=== PATIENT | female | born 1980 | race Caucasian/White ===

== ENCOUNTER 2020-07-26 08:02 | Outpatient (REF) | payer BC, SELFPAY | END 2020-07-26 08:03 | disposition home or self-care (01) | LOC: HO.LAB 08:02 | PROVIDERS: Visit Provider Internal Medicine | DX: Z20.822 Contact with and (suspected) exposure to COVID-19 (principal) | CPT/HCPCS: C9803; U0003; U0005 ==

== ENCOUNTER 2020-11-11 17:00 | Emergency (ER) | payer BC, SELFPAY ==
[2020-11-11 18:10] VITALS: BP 123/70; PULSE 72; RESP 18; TEMP 36.8; O2SAT 98; BMI 21.4
[2020-11-11 19:40] LABS: MANUAL DIFF FLAG NO
[2020-11-11 19:42] LABS: Basophils Percent Auto 0.4 % (0-2); Eosinophils Absolute Auto 0.1 X10*3/uL (0.0-0.4); Eosinophils Percent Auto 0.5 % (0-4); Hematocrit 37.4 % (37-47); Hemoglobin 12.8 g/dl (12.0-16.0); Imm Gran Abs Auto 0.02 X10*3/uL (0.00-0.03); Imm Gran Pct Auto 0.2 % (0.0-0.4); Lymphocytes Absolute Auto 3.3 X10*3/uL (1.2-4.9); Lymphocytes Percent Auto 31.4 % (20-40); Mean Corpuscular HGB Conc 34.2 g/dl (31.0-35.0); Mean Corpuscular Hemoglobin 32.3 pg (27.0-33.0); Mean Corpuscular Volume 94.4 fL (80-98); Mean Platelet Volume 9.5 fL (9.4-12.3); Monocytes Absolute Auto 0.6 X10*3/uL (0.1-1.2); Monocytes Percent Auto 5.7 % (2-11); Neutrophils Absolute Auto 6.4 X10*3/uL (2.0-8.3); Neutrophils Percent Auto 61.8 % (45-73); Platelet Count 263 X10*3/uL (160-400); Red Blood Count 3.96 X10*6/uL (4.20-5.50); Red Cell Distribution Width 12.5 % (11.0-16.0); White Blood Count 10.3 X10*3/uL (4.8-10.8)
[2020-11-11 19:44] LABS: Glucose Urine UA NEG (NEG); Leukocyte Esterase Urine NEG (NEG); Nitrite Urine NEG (NEG); Specific Gravity - Urine <= 1.005 (1.005-1.025); Urine Blood NEG (NEG); Urine Ketones NEG (NEG); Urine Protein NEG (NEG-TRACE)
[2020-11-11 19:45] LABS: Appearance Urine CLEAR; Color Urine YELLOW
[2020-11-11 20:08] LABS: Alanine Aminotransferase 12 U/L (0-31); Albumin Level 4.4 g/dL (3.5-5.0); Alkaline Phosphatase 64 U/L (39-117); Anion Gap 13 (12-20); Aspartate Amino Transferase 12 U/L (5-31); Bilirubin Total 0.4 mg/dL (0.0-1.0); Blood Urea Nitrogen 10 mg/dL (9-16); Calcium 9.4 mg/dL (8.4-10.2); Carbon Dioxide 26 mmol/L (22-29); Chloride 104 mmol/L (96-108); Creatinine Clr Calc Pharmacy 90.5; Estimated Glomerular Filt Rate > 60; Glucose Random 100 mg/dL (60-115); Potassium 4.1 mmol/L (3.3-5.1); Sodium 139 mmol/L (135-145); Total Protein 7.2 g/dL (6.5-8.0)
[2020-11-11 20:31] VITALS: BP 131/86; PULSE 70; RESP 18; TEMP 36.7; O2SAT 100
--- NOTE | 2020-11-11 20:49 | ED_ITS ---
HPI - Back Pain/Injury General Chief Complaint: Abdominal Pain Stated Complaint: flank pain Time Seen by Provider: 11/11/20 20:31 Source: patient Mode of arrival: ambulatory Limitations: no limitations History of Present Illness HPI Narrative: Patient is status post MTP 6 weeks ago complaining nausea bilateral flank pain for last few days had some frequency seen her PCP yesterday and did the urine testing and started on Bactrim pending final result no history of kidney stones no dysuria has lot of anxiety was treated for bacterial vaginosis 1 week ago no vaginal discharge now no fever or chills no nausea no v omiting no shortness of breath no cough Related Data Previous Rx's Medication Instructions Recorded cyclobenzaprine 10 mg tablet 10 mg PO Q8H #20 tab 11/11/20 lorazepam 1 mg tablet (Ativan) 1 mg PO BEDTIME PRN #10 tab 11/11/20 tramadol 50 mg tablet 50 mg PO Q6H PRN #20 tab 11/11/20 Allergies Allergy/AdvReac Type Severity Reaction Status Date / Time No Known Allergies Allergy Verified 11/11/20 18:10 [No Known Allergies*] Review of Systems Review of Systems: Yes all other systems are reviewed and are negative [facility] Past Medical History Medical History Social History Social History Advance Directives: No Patient : No Physical Exam Vital Signs: Vital Signs: Last Vital Signs Temp 98.0 F 11/11/20 20:31 Pulse 70 11/11/20 20:31 Resp 18 11/11/20 20:31 BP 131/86 11/11/20 20:31 Pulse Ox 100 11/11/20 20:31 Body Mass Index 21.4 Appearance: Alert. Oriented X3. No acute distress. Anxious Eyes: PERRLA, conjunctiva was normal sclera normal ENT: Pharynx normal. Oral Mucosa moist Neck: Normal inspection. Neck supple. CVS: Normal heart rate and rhythm. Pulses normal. Respiratory: No respiratory distress. Equal air entry bilateral, no wheezing/rales/rhonchi Abdomen: Soft and nontender. Bowel sounds are present, no mass palpable, mild right CVA tenderness Skin: Skin warm and dry. Normal skin color. Normal skin turgor. Extremities: No lower extremity edema. No calf tenderness Neuro: Oriented X 3. MDM - Back Pain/Injury MDM Narrative Medical decision making narrative: Patient with labs workup normal urine negative for red cells or white cells patient seems to more anxious likely muscular back pain will discharge her on pain medication was relaxed Lab Data Attestation: I reviewed the patient's lab results. Result diagrams: 11/11/20 19:33 11/11/20 19:33 Labs: Lab Results 11/11/20 11/11/20 11/11/20 Range/Units 19:26 19:33 19:33 WBC 10.3 (4.8-10.8) X10*3/uL RBC 3.96 L (4.20-5.50) X10*6/uL Hgb 12.8 (12.0-16.0) g/dl Hct 37.4 (37-47) % MCV 94.4 (80-98) fL MCH 32.3 (27.0-33.0) pg MCHC 34.2 (31.0-35.0) g/dl RDW 12.5 (11.0-16.0) % Plt Count 263 (160-400) X10*3/uL MPV 9.5 (9.4-12.3) fL Immature Gran % (Auto) 0.2 (0.0-0.4) % Neut % (Auto) 61.8 (45-73) % Lymph % (Auto) 31.4 (20-40) % Howell % (Auto) 5.7 (2-11) % Eos % (Auto) 0.5 (0-4) % Baso % (Auto) 0.4 (0-2) % Lymph # (Auto) 3.3 (1.2-4.9) X10*3/uL Howell # (Auto) 0.6 (0.1-1.2) X10*3/uL Eos # (Auto) 0.1 (0.0-0.4) X10*3/uL Baso # (Auto) 0.0 (0.0-0.2) X10*3/uL Abs Immat Gran (auto) 0.02 (0.00-0.03) X10*3/uL Absolute Neuts (auto) 6.4 (2.0-8.3) X10*3/uL Absolute Nucleated RBC 0.000 (0.0-0.012) X10*3/uL Nucleated RBC % (auto) 0.0 (0.0-0.2) /100WBC Sodium 139 (135-145) mmol/L Potassium 4.1 (3.3-5.1) mmol/L Chloride 104 (96-108) mmol/L Carbon Dioxide 26 (22-29) mmol/L Anion Gap 13 (12-20) BUN 10 (9-16) mg/dL Creatinine 0.84 (0.5-1.4) mg/dL Estim Creat Clear Calc 90.5 Estimated GFR > 60 Random Glucose 100 (60-115) mg/dL Calcium 9.4 (8.4-10.2) mg/dL Total Bilirubin 0.4 (0.0-1.0) mg/dL AST 12 (5-31) U/L ALT 12 (0-31) U/L Alkaline Phosphatase 64 (39-117) U/L Total Protein 7.2 (6.5-8.0) g/dL Albumin 4.4 (3.5-5.0) g/dL Urine Color YELLOW Urine Appearance CLEAR Urine pH 6.0 (5.0-8.0) Ur Specific [place] <= 1.005 (1.005-1.025) Urine Protein NEG (NEG-TRACE) MG/DL Urine Glucose (UA) NEG (NEG) MG/DL Urine Ketones NEG (NEG) MG/DL Urine Blood NEG (NEG) Urine Nitrite NEG (NEG) Ur Leukocyte Esterase NEG (NEG) Discharge Plan Discharge Clinical Impression: Back ache Patient Disposition: Home, Self-Care Instructions: Back Pain (ED) Additional Instructions: your blood workup and urine is negative for any infection Take pain medication and muscle relaxant as advised Prescriptions: New cyclobenzaprine 10 mg tablet 10 mg PO Q8H Qty: 20 RF: 0 tramadol 50 mg tablet 50 mg PO Q6H PRN (Reason: pain) Qty: 20 RF: 0 lorazepam [Ativan] 1 mg tablet 1 mg PO BEDTIME PRN (Reason: anxiety) Qty: 10 RF: 0 Interventions: ED Discharge Assessment Last Done: 11/11/20 20:57 Discharge Date/Time: 11/11/20 20:58
== END 2020-11-11 20:58 | disposition home or self-care (01) ==
LOC: HO.ED 20:53
PROVIDERS: Emergency Provider Internal Medicine; PCP Internal Medicine
DX: M54.9 Dorsalgia, unspecified (principal)
CPT/HCPCS: 36415; 80053; 81003; 85025; 99283

== ENCOUNTER 2022-02-25 08:08 | Outpatient (REF) | payer OTHER, SELFPAY ==
[2022-02-25 11:11] LABS: MANUAL DIFF FLAG NO
[2022-02-25 11:32] LABS: Basophils Percent Auto 0.5 % (0-2); Eosinophils Percent Auto 0.7 % (0-4); Hematocrit 38.5 % (37.0-47.0); Imm Gran Abs Auto 0.02 X10*3/uL (0.00-0.03); Imm Gran Pct Auto 0.3 % (0.0-0.4); Lymphocytes Absolute Auto 2.2 X10*3/uL (1.2-4.9); Lymphocytes Percent Auto 36.7 % (20-40); Mean Corpuscular HGB Conc 33.8 g/dl (31.0-35.0); Mean Corpuscular Hemoglobin 31.3 pg (27.0-33.0); Mean Corpuscular Volume 92.5 fL (80.0-98.0); Mean Platelet Volume 10.1 fL (9.4-12.3); Monocytes Absolute Auto 0.4 X10*3/uL (0.1-1.2); Monocytes Percent Auto 7.2 % (2-11); Neutrophils Absolute Auto 3.2 x10*3/uL (2.0-8.3); Neutrophils Percent Auto 54.6 % (45-73); Platelet Count 244 X10*3/uL (160-400); Red Blood Count 4.16 X10*6/uL (4.20-5.50); Red Cell Distribution Width 12.9 % (11.0-16.0); White Blood Count 5.9 X10*3/uL (4.8-10.8)
[2022-02-25 12:28] LABS: Cholesterol 190 mg/dL; Glucose Fasting 95 mg/dL (60-99); HDL Cholesterol 73 mg/dL; LDL Cholesterol Calculated 108 mg/dl; Triglycerides 47 mg/dL; Vitamin D 25-OH Total 34.9 ng/mL (>30)
== END 2022-02-25 08:09 | disposition home or self-care (01) ==
LOC: HO.HMGCLDS 08:08
PROVIDERS: PCP Internal Medicine; Visit Provider Internal Medicine
DX: Z00.00 Encounter for general adult medical examination without abnormal findings (principal)
CPT/HCPCS: 36415; 80061; 82306; 82947; 85025

== ENCOUNTER 2023-03-03 07:46 | Outpatient (AMB) | payer OTHER, SELFPAY ==
--- NOTE | 2023-03-03 08:00 | A.OFFPC_ITS ---
Vital Signs 03/03/23 08:01 Height 5 ft 9 in Weight 160 lb 6 oz BMI 23.7 BP 120/78 Blood Pressure Location Lt brachial Position Sitting Pulse 61 Pulse Source Pulse Oximeter Pulse Oximetry (%) 98 Oxygen Delivery Method Room Air Intake Visit Reasons: Annaul PE Intake Note: pt is here for her Annual PE Is last menstrual period known: Yes Last menstrual period: 02/10/23 Allergies amoxicillin Adverse Reaction (Intermediate, Verified 03/03/23 08:16) Vomiting Medication List - Last Reconciled 03/03/23 by Mayuri Pineda MD No Known Home Meds Tobacco use date assessed: 03/03/23 Dental Screening Dental Screen Date: 03/03/23 Did you have a dental visit in the last 12 months?: Yes Did you have a dental problem in the last 6 months where you did not have access to dental care?: No Was dental information given to patient?: Patient has dentist HPI Annaul PE HPI Details 42-year-old lady here today for physical exam. She is up-to-date with her screening mammogram, had it done earlier this year at [facility] with negative findings. Has been feeling well, with no complaints at present time. Vaccines have been offered in the past but patient has declined getting them. She sees Dr. Gupta for her routine Pap and pelvic exam, last Pap was done in 2020. [facility] Medical History (Updated 03/03/23 @ 08:18 by Mayuri Pineda MD) Refused influenza vaccine COVID-19 vaccine series declined Varicose veins of left lower extremity Surgical History Status post sclerotherapy of varicose veins Family History Father Essential hypertension History of CVA (cerebrovascular accident) Hyperlipidemia Prostate cancer Mother Hyperlipidemia Essential hypertension Melanoma Housing: House Patient Tobacco Use Status: Never used Tobacco e-Cigarette/Vaping Use: Never Used Second Hand Smoke Exposure: No Current occupational status: employed Cognitive needs: No Hearing needs: No Vision needs: No Female Reproductive History Menstrual Date of last menstrual period: 02/10/23 Questionnaire PHQ-9 Over the last 2 weeks, how often have you been bothered by any of the following problems? 1. Little interest or pleasure in doing things: not at all 2. Feeling down, depressed, or hopeless: not at all 3. Trouble falling or staying asleep, or sleeping too much: not at all 4. Feeling tired or having little energy: several days 5. Poor appetite or overeating: not at all 6. Feeling bad about yourself - or that you are a failure or have let yourself or your family down: not at all 7. Trouble concentrating on things, such as reading the newspaper or watching television: not at all 8. Moving or speaking so slowly that other people could have noticed. Or the opposite - being so fidgety or restless that you have been moving around a lot more than usual: not at all 9. Thoughts that you would be better off or of hurting yourself in some way: not at all Total score: 1 Depression Screening Interpretation: Negative Depression Screening Done: Yes 56493 - PHQ-9 Billing: Yes Source: Developed by Drs. Vineet Wellington, Viktoriya Haile, Jd Pena and colleagues, with an educational ann from [employer]. Thrive Questionnaire Date Thrive assessed: 03/03/23 I am a: Patient What is your living situation today?: I have a steady place to live Within the past 12 months, did the food you bought not last and you didn't have the money to get more?: Never true Within the past 12 months, did you worry whether your food would run out before you got money to buy more?: Never true Do you have trouble paying for medicines?: No Do you have trouble getting transportation to medical appointments?: No Do you have trouble paying your heating and electricity bill?: No Do you have trouble taking care of your child, family member or friend?: No Do you have trouble with day-to-day activities such as bathing, preparing meals, shopping, managing finances, etc.?: No Are you currently unemployed and looking for a job?: No Are you interested in more education?: No Please select the resources that you would like help with: None AUDIT C Alcohol Use Questionnaire (AUDIT-C) 1. How often do you have a drink containing alcohol?: 2-4 times a month 2. How many drinks containing alcohol do you have on a typical day when you are drinking?: 1 or 2 3. How often do you have six or more drinks on one occasion?: Less than monthly Total Score: 3 CHILO-7 AMB Questionnaire CHILO-7 Date CHILO - 7 assessed: 03/03/23 Feeling nervous, anxious, or on edge: 0 = Not at all Not being able to stop or control worryin = Not at all Worrying too much about different things: 0 = Not at all Trouble relaxin = Not at all Being so restless that it is hard to sit still: 0 = Not at all Becoming easily annoyed or irritable: 0 = Not at all Feeling afraid as if something awful might happen: 0 = Not at all Total CHILO-7 score (0-4 normal; 5-9 mild; 10-14 moderate; 15-21 severe): 0 Source: Developed by Drs. Vineet Wellington, Viktoriya Haile, Jd Pena and colleagues, with an educational ann from [employer]. CHILO-7 Assessment Billing CHILO-7 Assessment Tool: CHILO-7 Assessment 53127 Review of Systems Const Denies body aches, Denies fatigue, Denies fever(s), Denies headache(s) and Denies weakness Eyes Details: Was seen in the past at [facility] with no abnormality seen Denies change in vision, Denies eye discharge and Denies itchy eyes ENT Details: Goes for dental prophylaxis only once a year Denies dizziness, Denies headache(s), Denies nasal congestion, Denies nasal discharge and Denies sore throat Card Denies chest pain, Denies lightheadedness, Denies palpitations and Denies dyspnea Resp Denies chest congestion, Denies cough, Denies dyspnea and Denies wheezing GI Denies abdominal pain, Denies change in bowel habits and Denies heartburn Denies hematuria, Denies urinary frequency, Denies dysuria and Denies urinary urgency Musc Reports no additional complaints Skin/Breast Denies breast pain, Denies breast mass, Denies lesions and Denies rash Neuro Denies dizziness, Denies headache(s) and Denies weakness Psych Reports no additional complaints Endo Denies fatigue, Denies polydipsia, Denies polyuria and Denies palpitations Kerwin/Lymph Denies easy bruising Aller/Immun Denies itchy eyes, Denies seasonal rhinorrhea and Denies wheezing Physical exam (Primary Care) Vital Signs: Last Vital Signs Pulse 61 03/03/23 08:01 BP 120/78 03/03/23 08:01 Pulse Ox 98 03/03/23 08:01 Oxygen Delivery Method Room Air 03/03/23 08:01 BMI result Body Mass Index 23.7 Tobacco/Smoking Status: Tobacco use Status Tobacco use date assessed 03/03/23 03/03/23 08:06 Patient Tobacco Use Status Never used Tobacco 03/03/23 08:03 e-Cigarette/Vaping Use Never Used 03/03/23 08:03 PHQ-9: PHQ-9 Score PHQ-9: Total score 1 03/03/23 08:09 Depression Screening Interpretation: Negative Thrive Assessment: Date of Thrive Assessment Date Thrive assessed 03/03/23 03/03/23 08:09 Const Other: Alert oriented x3, no acute cardiorespiratory distress noted ambulatory with normal gait Nutritional Appearance: average body habitus Orientation/consciousness: patient oriented x3 HENMT Head: Yes normocephalic and Yes atraumatic Ears: hearing grossly normal bilaterally, external ears normal, TM's normal bilaterally and EAC's normal General nose exam: Normal external nose present and No nasal discharge present Face and sinus: Yes face symmetric Mouth: Normal oral and palatal mucosa present, lip normal, tongue normal, oropharynx normal and moist mucous membranes Eyes General: appearance normal, both eyes and all related structures Neck Neck: Yes full ROM, Yes no lymphadenopathy and Yes supple Thyroid: Thyroid normal Chest Chest palpation & inspection: normal inspection of the chest Breast/axilla palpation: normal palpation of the breasts Resp Effort & Inspection: normal respiratory effort and able to speak in complete sentences Auscultation: clear to auscultation bilaterally Cardio Other: S1-S2 present regular rate and rhythm, no murmurs GI Inspection: Yes normal to inspection Palpation (GI): Soft to palpation, nontender, no guarding, no hernias and no masses Other: She goes to [facility] for her routine Pap pelvic exam, currently up-to-date per patient General: Yes no CVA tenderness Back/Spine/Pelvis Back: no CVA tenderness and No back tenderness Skin Other: No abnormal skin lesion or rash noted Neuro General: patient oriented x3, gait normal, moves all extremities, Normal light t ouch and pain sensation, no focal motor deficits, CN's II-XI intact bilaterally and deep tendon reflexes 2+ bilaterally Extrem General: Yes full ROM, Yes no clubbing, cyanosis or edema, Yes no calf tenderness and Yes normal gait Psych Appearance: grossly normal and well kempt Mental Status: mental status grossly normal Speech and movement: Normal speech and movement present Affect: normal affect Attitude: cooperative Assessment and Plan Assessment & Plan (1) Annual visit for general adult medical examination with abnormal findings: Code(s): Z00.01 - Encounter for general adult medical examination with abnormal findings Plan: Will check appropriate labs. Continue with regular dental prophylaxis and regular eye exams, at least every 2 years. Take adequate calcium in diet and vitamin-D 3 at 2000 IU per cap once a day, in addition to weight-bearing exercises to help maintain good muscle tone and weight control. Continue to do self-breast exam, and get yearly mammogram. Patient declines getting any adult vaccinations . She sees Dr. Gupta for her routine Pap and pelvic exam, due again this year Orders: Orders Lipid Panel Today Z00.01 - Encounter for general adult medical examination with abnormal findings, Z13.1 - Encounter for screening for diabetes mellitus, Z13.220 - Encounter for screening for lipoid disorders Vitamin D 25-OH Total Today Z00.01 - Encounter for general adult medical examination with abnormal findings, Z13.1 - Encounter for screening for diabetes mellitus, Z13.220 - Encounter for screening for lipoid disorders Glucose Fasting Today Z00.01 - Encounter for general adult medical examination with abnormal findings, Z13.1 - Encounter for screening for diabetes mellitus, Z13.220 - Encounter for screening for lipoid disorders Coding Level of Care Code Est Pt Prev Care 40-64y(91109) Diagnoses Annual visit for general adult medical examination with abnormal findings Z00. Additional Codes CHILO-7 Assessment Billing - CHILO-7 Assessment Tool: CHILO-7 Assessment 06676 ([id number])
[2023-03-03 08:01] VITALS: BP 120/78; PULSE 61; O2SAT 98; BMI 23.7
== END 2023-03-03 08:41 | disposition home or self-care (01) ==
PROVIDERS: Visit Provider Internal Medicine
DX: Z00.00 Encounter for general adult medical examination without abnormal findings (principal)
CPT/HCPCS: 99396

== ENCOUNTER 2023-03-03 08:33 | Outpatient (REF) | payer OTHER, SELFPAY ==
[2023-03-03 12:25] LABS: Cholesterol 189 mg/dL (<200); Glucose Fasting 94 mg/dL (60-99); HDL Cholesterol 71 mg/dL (>40); LDL Cholesterol Calculated 109 mg/dL (<100); Triglycerides 49 mg/dL (<150)
[2023-03-03 12:43] LABS: Vitamin D 25-OH Total 58.6 ng/mL (>30)
== END 2023-03-03 08:34 | disposition home or self-care (01) ==
LOC: HO.HMGCLDS 08:33
PROVIDERS: PCP Internal Medicine; Visit Provider Internal Medicine
DX: Z00.01 Encounter for general adult medical examination with abnormal findings (principal); Z13.1 Encounter for screening for diabetes mellitus; Z13.220 Encounter for screening for lipoid disorders
CPT/HCPCS: 36415; 80061; 82306; 82947

== ENCOUNTER 2024-03-14 08:47 | Outpatient (REF) | payer BC, SELFPAY ==
[2024-03-14 15:21] LABS: Cholesterol 187 mg/dL (<200); Glucose Fasting 95 mg/dL (60-99); HDL Cholesterol 66 mg/dL (>40); LDL Cholesterol Calculated 109 mg/dL (<100); Triglycerides 60 mg/dL (<150); Vitamin D 25-OH Total 49.2 ng/mL (>30)
== END 2024-03-14 08:48 | disposition home or self-care (01) ==
LOC: HO.HMGCLDS 08:47
PROVIDERS: PCP Internal Medicine; Visit Provider Internal Medicine
DX: Z00.00 Encounter for general adult medical examination without abnormal findings (principal); Z71.89 Other specified counseling; Z28.21 Immunization not carried out because of patient refusal; Z28.310 Unvaccinated for COVID-19; Z13.1 Encounter for screening for diabetes mellitus; Z13.220 Encounter for screening for lipoid disorders
CPT/HCPCS: 36415; 80061; 82306; 82947; 96127

== ENCOUNTER 2024-03-14 08:47 | Outpatient (AMB) | payer BC, SELFPAY ==
--- NOTE | 2024-03-14 08:55 | A.OFFPC_ITS ---
Vital Signs 03/14/24 08:58 Height 5 ft 8.5 in Weight 162 lb BMI 24.3 BP 98/62 Blood Pressure Location Rt brachial Position Sitting Pulse 63 Pulse Source Pulse Oximeter Pulse Oximetry (%) 96 Oxygen Delivery Method Room Air Intake Visit Reasons: Annual PE Intake Note: Pt is here today for her PE: Last mammogram 08/17/23, papsmear 05/24/20 Allergies amoxicillin Adverse Reaction (Intermediate, Verified 03/14/24 09:27) Vomiting Medication List - Last Reconciled 03/14/24 by Mayuri Pineda MD No Known Home Meds Tobacco use date assessed: 03/14/24 Dental Screening Dental Screen Date: 03/14/24 Did you have a dental visit in the last 12 months?: Yes Did you have a dental problem in the last 6 months where you did not have access to dental care?: No Was dental information given to patient?: Patient has dentist HPI Annual PE HPI Details 43-year-old female presenting for a physical examination. She is up to date with breast cancer screening, last mammogram in 2023, and notes that she is due for a Pap smear this year, previous one was in 2020. The patient does not have a family history of colon cancer and wishes to defer a colonoscopy until next year when she turns 44. Family history reveals melanoma in her father and prostate cancer along with carcinoid tumors on the kidney in her father, with no immediate relatives having colon cancer. The patient sees a cleaner signs regularly . Complains of some abdominal discomfort when engaging in sit-ups, though no clear diagnosis of a hernia was established. She reports experiencing headaches an hour after alcohol consumption, which has been a recent development. She has no history of depression, anxiety, smoking, thyroid issues, or recent surgeries. Blood tests from the previous year showed normal vitamin D levels, cholesterol, and glucose. She mentioned wearing compression socks in the winter to manage varicose veins, which were surgically treated post-childbirth. - Due for Pap smear (last performed in ). - Up to date with mammogram; next due in 2024. - Regular cleaner signs visits for skin examinations, goes to [facility] - Has regular eye examinations; last exa m in the previous year. - Maintains dental check-ups every six m ont. - Blood work last year showed normal vit dowling D, stable cholesterol and glucose. - Consideration for colonoscopy screenin g at age 43, wants to delay for next year. - Encouraged to wear compression stockin gs to manage varicose veins. [facility] Medical History Refused influenza vaccine COVID-19 vaccine series declined Varicose veins of left lower extremity Surgical History Status post sclerotherapy of varicose veins Family History Father Essential hypertension History of CVA (cerebrovascular accident) Hyperlipidemia Prostate cancer Mother Hyperlipidemia Essential hypertension Melanoma Social History Housing: House Patient Tobacco Use Status: Never used Tobacco e-Cigarette/Vaping Use: Never Used Second Hand Smoke Exposure: No service: No Current occupational status: employed Cognitive needs: No Hearing needs: No Vision needs: No Questionnaire PHQ-9 Over the last 2 weeks, how often have you been bothered by any of the following problems? 1. Little interest or pleasure in doing things: not at all 2. Feeling down, depressed, or hopeless: not at all 3. Trouble falling or staying asleep, or sleeping too much: not at all 4. Feeling tired or having little energy: not at all 5. Poor appetite or overeating: not at all 6. Feeling bad about yourself - or that you are a failure or have let yourself or your family down: not at all 7. Trouble concentrating on things, such as reading the newspaper or watching television: not at all 8. Moving or speaking so slowly that other people could have noticed. Or the opposite - being so fidgety or restless that you have been moving around a lot more than usual: not at all 9. Thoughts that you would be better off or of hurting yourself in some way: not at all Total score: 0 Depression Screening Interpretation: Negative Depression Screening Done: Yes 56072 - PHQ-9 Billing: Yes Source: Developed by Drs. Vineet Wellington, Viktoriya Haile, Jd Pena and colleagues, with an educational ann from [employer]. Thrive Questionnaire Date Thrive assessed: 03/15/24 I am a: Patient What is your living situation today?: I have a steady place to live Within the past 12 months, did the food you bought not last and you didn't have the money to get more?: Never true Within the past 12 months, did you worry whether your food would run out before you got money to buy more?: Never true Do you have trouble paying for medicines?: No Do you have trouble getting transportation to medical appointments?: No Do you have trouble paying your heating and electricity bill?: No Do you have trouble taking care of your child, family member or friend?: No Do you have trouble with day-to-day activities such as bathing, preparing meals, shopping, managing finances, etc.?: No Are you currently unemployed and looking for a job?: No Are you interested in more education?: No Please select the resources that you would like help with: None Currently or been in a relationship where the following occur: No concerns reported THRIVE Score: 0 AUDIT C Alcohol Use Questionnaire (AUDIT-C) 3. How often do you have six or more drinks on one occasion?: Never Total Score: 0 CHILO-7 AMB Questionnaire CHILO-7 Date CHILO - 7 assessed: 03/14/24 Feeling nervous, anxious, or on edge: 0 = Not at all Not being able to stop or control worryin = Not at all Worrying too much about different things: 0 = Not at all Trouble relaxin = Not at all Being so restless that it is hard to sit still: 0 = Not at all Becoming easily annoyed or irritable: 0 = Not at all Feeling afraid as if something awful might happen: 0 = Not at all Total CHILO-7 score (0-4 normal; 5-9 mild; 10-14 moderate; 15-21 severe): 0 Source: Developed by Drs. Vineet Wellington, Viktoriya Haile, Jd Pena and colleagues, with an educational ann from [employer]. CHILO-7 Assessment Billing CHILO-7 Assessment Tool: CHILO-7 Assessment 02007 Review of Systems Const Denies body aches, Denies fatigue, Denies fever(s), Denies headache(s) and Denies weakness Eyes Details: seen by [facility] Denies change in vision, Denies eye discharge and Denies itchy eyes ENT Denies dizziness, Denies headache(s), Denies nasal congestion, Denies nasal discharge and Denies sore throat Card Denies chest pain, Denies lightheadedness, Denies palpitations and Denies dyspnea Resp Denies chest congestion, Denies cough, Denies dyspnea and Denies wheezing GI Denies abdominal pain, Denies change in bowel habits and Denies heartburn Denies hematuria, Denies urinary frequency, Denies dysuria and Denies urinary urgency Musc Reports no additional complaints Skin/Breast Denies breast pain, Denies breast mass, Denies lesions and Denies rash Neuro Denies dizziness, Denies headache(s) and Denies weakness Psych Reports no additional complaints Endo Denies fatigue, Denies polydipsia, Denies polyuria and Denies palpitations Kerwin/Lymph Denies easy bruising Aller/Immun Denies itchy eyes, Denies seasonal rhinorrhea and Denies wheezing Physical exam (Primary Care) Vital Signs: Last Vital Signs Pulse 63 03/14/24 08:58 BP 98/62 03/14/24 08:58 Pulse Ox 96 03/14/24 08:58 Oxygen Delivery Method Room Air 03/14/24 08:58 BMI result Body Mass Index 24.3 Tobacco/Smoking Status: Tobacco use Status Tobacco use date assessed 03/14/24 03/14/24 08:58 Patient Tobacco Use Status Never used Tobacco 03/14/24 08:58 e-Cigarette/Vaping Use Never Used 03/14/24 08:58 PHQ-9: PHQ-9 Score PHQ-9: Total score 0 03/14/24 09:32 Depression Screening Interpretation: Negative Thrive Assessment: Date of Thrive Assessment Date Thrive assessed 03/15/24 03/14/24 08:58 Currently or been in a relationship where the following occur: No concerns reported Advance Care Planning discussion: Completed/Scanned Date of discussion: 03/14/24 Who was present: patient Forms completed: Health Care Proxy Time spent: 16-45 minutes Actual minutes spent: 3 Const Other: Alert oriented x3, no acute cardiorespiratory distress noted ambulatory with normal gait Nutritional Appearance: average body habitus Orientation/consciousness: patient oriented x3 HENMT Head: Yes normocephalic Ears: hearing grossly normal bilaterally, external ears normal, TM's normal bilaterally and EAC's normal General nose exam: Normal external nose present Face and sinus: Yes face symmetric Mouth: Normal oral and palatal mucosa present, lip normal, tongue normal, oropharynx normal and moist mucous membranes Eyes General: appearance normal, both eyes and all related structures Neck Neck: Yes full ROM, Yes no lymphadenopathy and Yes supple Thyroid: Thyroid normal Chest Chest palpation & inspection: normal inspection of the chest Breast/axilla palpation: normal palpation of the breasts Resp Effort & Inspection: normal respiratory effort and able to speak in complete sentences Auscultation: clear to auscultation bilaterally Cardio Other: S1-S2 present regular rate and rhythm, no murmurs GI Inspection: Yes normal to inspection Palpation (GI): Soft to palpation, nontender, no guarding, no hernias and no masses Other: She goes to [facility] for her routine Pap pelvic exam, currently up-to-date per patient General: Yes no CVA tenderness Back/Spine/Pelvis Back: no CVA tenderness and No back tenderness Skin Other: No abnormal skin lesion or rash noted Neuro General: patient oriented x3, gait normal, moves all extremities, Normal light touch and pain sensation, no focal motor deficits, CN's II-XI intact bilaterally and deep tendon reflexes 2+ bilaterally Extrem General: Yes full ROM, Yes no clubbing, cyanosis or edema, Yes no calf tenderness and Yes normal gait Psych Appearance: grossly normal and well kempt Mental Status: mental status grossly normal Speech and movement: Normal speech and movement present Affect: normal affect Attitude: cooperative Coding Level of Care Code Est Pt Prev Care 40-64y(29052) Diagnoses Annual visit for general adult medical examination with abnormal findings Z00.01 COVID-19 vaccine series declined Z28.21; Z28.310 Refused influenza vaccine Z28.21 Advanced directives, counseling/discussion Z71.89 Additional Codes CHILO-7 Assessment Billing - CHILO-7 Assessment Tool: CHILO-7 Assessment 61215 ([id number]) PHQ-9 - 61147 - PHQ-9 Billing: Yes ([id number]) Vital Signs *Quality* - Advance Care Planning discussion: Completed/Scanned ([id number]) Vital Signs *Quality* - Time spent: 16-45 minutes ([id number]) Assessment & Plan Assessment & Plan (1) Annual visit for general adult medical examination with abnormal findings: Code(s): Z00.01 - Encounter for general adult medical examination with abnormal findings (2) COVID-19 vaccine series declined: Code(s): Z28.21 - Immunization not carried out because of patient refusal; Z28.310 - Unva ccinated for COVID-19 Category: Medical (3) Refused influenza vaccine: Code(s): Z28.21 - Immunization not carried out because of patient refusal Category: Medical (4) Advanced directives, counseling/discussion: Code(s): Z71.89 - Other specified counseling Plan: Initiated the conversation about Advanced Directives. Advanced Directives help patients prepare for current and future decisions about their medical treatment and place of care. Discussed with patient that it is a process where a patients current condition and prognosis are reviewed, their wishes for information regarding their illness are elicited, and likely medical dilemmas are presented and options discussed. Healthcare proxy form completed. The form can be amended as needed, reviewed yearly and make changes as needed Plan - Conduct Pap smear this year to screen for cervical cancer. - Advise lifestyle modifications to manage LDL cholesterol levels, including dietary adjustments. - Recommend continuing wearing compression stockings during winter for varicose vein management. - Encourage continued periodic dermatological evaluations due to family history of melanoma. - Blood tests to be conducted to reassess vitamin D, glucose, and cholesterol levels. During the consultation, I informed the patient about her health maintenance requirements, including completing a Pap smear this year and managing her lifestyle to control LDL cholesterol levels. I discussed the family history of cancer, stressing the importance of regular dermatological evaluations given her father's melanoma history. I also covered the benefits of wearing compression stockings to manage varicose veins, noting her postoperative history. Additional ly, we discussed the risk and benefits of delaying a colonoscopy screening until next year. Patient was informed and verbally consented to the use of an ambient scribe for clinic note documentation during this visit. Orders: Orders Vitamin D 25-OH Total 03/14/24 Z13.1 - Encounter for screening for diabetes mellitus, Z13.220 - Encounter for screening for lipoid disorders Glucose Fasting 03/14/24 Z13.1 - Encounter for screening for diabetes mellitus, Z13.220 - Encounter for screening for lipoid disorders, Z28.21 - Immunization not carried out because of patient refusal, Z28.310 - Unvaccinated for COVID-19 Lipid Panel 03/14/24 Z13.1 - Encounter for screening for diabetes mellitus, Z13.220 - Encounter for screening for lipoid disorders, Z28.21 - Immunization not carried out because of patient refusal, Z28.310 - Unvaccinated for COVID-19
[2024-03-14 08:58] VITALS: BP 98/62; PULSE 63; O2SAT 96; BMI 24.3
== END 2024-03-14 10:12 | disposition home or self-care (01) ==
PROVIDERS: PCP Internal Medicine; Visit Provider Internal Medicine
DX: Z00.01 Encounter for general adult medical examination with abnormal findings (principal); Z28.21 Immunization not carried out because of patient refusal; Z28.310 Unvaccinated for COVID-19; Z71.89 Other specified counseling

== ENCOUNTER 2025-03-19 08:21 | Outpatient (AMB) | payer BC, SELFPAY ==
--- NOTE | 2025-03-19 08:45 | MHC.PC.OV ---
Vital Signs 03/19/25 08:56 Height 5 ft 9 in Weight 164 lb BMI 24.2 BP 118/70 Blood Pressure Location Rt brachial Position Sitting Respiration 16 Pulse 73 Pulse Source Pulse Oximeter Temp 98.7 F Temp Source Oral Pulse Oximetry (%) 97 Oxygen Delivery Method Room Air Intake Visit Reasons: PE - see comments Intake Note: Pt is here today for her PE: last mammogram 08/18/24, papsmear 05/14/20 [employer] Required: No Is last menstrual period known: Yes Last menstrual period: 03/02/25 Allergies amoxicillin Adverse Reaction (Intermediate, Verified 03/19/25 09:16) Vomiting Medication List - Last Reconciled 03/19/25 by Mayuri Pineda MD No Known Home Meds Tobacco use date assessed: 03/19/25 Dental Screening Dental Screen Date: 03/19/25 Did you have a dental visit in the last 12 months?: Yes Did you have a dental problem in the last 6 months where you did not have access to dental care?: No Was dental information given to patient?: Patient has dentist HPI HPI Comments History of Present Illness Details The patient is a 44 year old female presenting physical examination. She is up to date with her Pap smear, which was done last year, and mammogram done earlier this year.. She recently underwent her first screening colonoscopy on December 26 of this year at [facility], performed by Dr. Jaime. The findings included mild sigmoid diverticulosis and non-bleeding internal hemorrhoids, with no polyps found. Despite the benign findings, a repeat colonoscopy was recommended in 5 years, likely due to a positive family history for colon cancer. Her maternal grandmother from colon cancer at age 54, and all of her sisters have had polyps. The patient also sees a reed polisher yearly at [facility] for skin cancer screening due to her mother's history of skin cancer, with no abnormal findings for the patient to date. Her next appointment is in August. Lab work from 2021 showed no anemia, good cholesterol, normal vitamin D, and normal glucose. She is not on any medications. Her blood pressure is within normal limits. She reports being active. She has regular menstrual periods and is not on any form of control. She denies any family history of thyroid disease or eye conditions like glaucoma or macular degeneration. [facility] Medical History Refused influenza vaccine COVID-19 vaccine series declined Varicose veins of left lower extremity Surgical History Status post sclerotherapy of varicose veins Family History Father Essential hypertension History of CVA (cerebrovascular accident) Hyperlipidemia Prostate cancer Mother Hyperlipidemia Essential hypertension Melanoma Social History Housing: House Patient Tobacco Use Status: Never used Tobacco e-Cigarette/Vaping Use: Never Used Second Hand Smoke Exposure: No service: No Current occupational status: employed Cognitive needs: No Hearing needs: No Vision needs: No Female Reproductive History Menstrual Date of last menstrual period: 03/02/25 Questionnaire PHQ-9 Over the last 2 weeks, how often have you been bothered by any of the following problems? 1. Little interest or pleasure in doing things: not at all 2. Feeling down, depressed, or hopeless: not at all 3. Trouble falling or staying asleep, or sleeping too much: not at all 4. Feeling tired or having little energy: not at all 5. Poor appetite or overeating: not at all 6. Feeling bad about yourself - or that you are a failure or have let yourself or your family down: not at all 7. Trouble concentrating on things, such as reading the newspaper or watching television: not at all 8. Moving or speaking so slowly that other people could have noticed. Or the opposite - being so fidgety or restless that you have been moving around a lot more than usual: not at all 9. Thoughts that you would be better off or of hurting yourself in some way: not at all Total score: 0 Depression Screening Interpretation: Negative Depression Screening Done: Yes 16991 - PHQ-9 Billing: Yes Source: Developed by Drs. Vineet Wellington, Viktoriya Haile, Jd Pena and colleagues, with an educational ann from [employer]. Thrive Questionnaire Date Thrive assessed: 03/19/25 I am a: Patient What is your living situation today?: I have a steady place to live Within the past 12 months, did the food you bought not last and you didn't have the money to get more?: Never true Within the past 12 months, did you worry whether your food would run out before you got money to buy more?: Never true Do you have trouble paying for medicines?: No Do you have trouble getting transportation to medical appointments?: No Do you have trouble paying your heating and electricity bill?: No Do you have trouble taking care of your child, family member or friend?: No Do you have trouble with day-to-day activities such as bathing, preparing meals, shopping, managing finances, etc.?: No Are you currently unemployed and looking for a job?: No Are you interested in more education?: No Please select the resources that you would like help with: None Currently or been in a relationship where the following occur: No concerns reported THRIVE Score: 0 AUDIT C Alcohol Use Questionnaire (AUDIT-C) 1. How often do you have a drink containing alcohol?: Monthly or less 2. How many drinks containing alcohol do you have on a typical day when you are drinking?: 1 or 2 3. How often do you have six or more drinks on one occasion?: Never Total Score: 1 CHILO-7 AMB Questionnaire CHILO-7 Date CHILO - 7 assessed: 03/19/25 Feeling nervous, anxious, or on edge: 0 = Not at all Not being able to stop or control worryin = Not at all Worrying too much about different things: 0 = Not at all Trouble relaxin = Not at all Being so restless that it is hard to sit still: 0 = Not at all Becoming easily annoyed or irritable: 0 = Not at all Feeling afraid as if something awful might happen: 0 = Not at all Total CHILO-7 score (0-4 normal; 5-9 mild; 10-14 moderate; 15-21 severe): 0 Source: Developed by Drs. Vineet Wellington, Viktoriya Haile, Jd Pena and colleagues, with an educational ann from [employer] CHILO-7 Assessment Billing CHILO-7 Assessment Tool: CHILO-7 Assessment 89086 Review of Systems Narrative Review of Systems - General: Reports being active. - Eyes: Reports use of reading glasses.[facility] [place] [address] [place] - Cardiovascular: Denies heartburn. - Gastrointestinal: Reports occasional indigestion. Denies abdominal pain, has all her abdominal organs including gallbladder. - Genitourinary: Reports regular menstrual periods. Reports urinary urgency. - Musculoskeletal: Denies knee pain. - Skin: No additional complaints. She sees Dr Adriana Connors at [facility] for skin cancer screen yearly - Neurological: Denies knee pain. - Psychiatric: Denies depression or anxiety, but reports feeling overwhelmed with life at times. - Endocrine: Denies any family history of thyroid issues. - Infectious Disease: Denies ever having COVID. Constitution Reports no additional complaints Eyes no change in vision ENT Reports no additional complaints, Denies dysphagia and Denies odynophagia Cardiology Reports no additional complaints Respiratory Reports no additional complaints GI Denies abdominal pain, Denies belching, Denies melena, Denies bloating, Denies change in bowel habits, Denies dysphagia, Denies excessive flatus, Denies dyspepsia, Denies heartburn, Denies diarrhea, Denies loose stools, Denies nausea, Denies odynophagia and Denies vomiting Reports no additional complaints Muscular no additional complaints Skin/Breast Denies breast swelling, Denies breast pain, Denies breast mass and Denies rash Neurology Reports no additional complaints, Denies Abnormal speech present and Denies Sensory deficit (Neuro) Psychiatry Reports no additional complaints Endocrine Reports no additional complaints Kerwin/Lymph Reports no additional complaints Aller/Immun Reports no additional complaints Physical exam (Primary Care) Vital Signs: Last Vital Signs Temp 98.7 F 03/19/25 08:56 Pulse 73 03/19/25 08:56 Resp 16 03/19/25 08:56 BP 118/70 03/19/25 08:56 Pulse Ox 97 03/19/25 08:56 Oxygen Delivery Method Room Air 03/19/25 08:56 BMI result Body Mass Index 24.2 Tobacco/Smoking Status: Tobacco use Status Tobacco use date assessed 03/19/25 03/19/25 08:47 Patient Tobacco Use Status Never used Tobacco 03/19/25 08:47 e-Cigarette/Vaping Use Never Used 03/19/25 08:47 PHQ-9: PHQ-9 Score PHQ-9: Total score 0 03/19/25 09:25 Depression Screening Interpretation: Negative Thrive Assessment: Date of Thrive Assessment Date Thrive assessed 03/19/25 03/19/25 08:47 Currently or been in a relationship where the following occur: No concerns reported Const Other: Alert oriented x3, no acute cardiorespiratory distress noted ambulatory with normal gait HENMT Head: Yes normocephalic Ears: hearing grossly normal bilaterally, external ears normal, TM's normal bilaterally and EAC's normal General nose exam: Normal external nose present Face and sinus: Yes face symmetric Mouth: tongue normal and moist mucous membranes Eyes General: appearance normal, both eyes and all related structures Neck Neck: Yes full ROM, Yes no lymphadenopathy and Yes supple Thyroid: Thyroid normal Chest Chest palpation & inspection: normal inspection of the chest Breast/axilla palpation: normal palpation of the breasts Resp Effort & Inspection: normal respiratory effort and able to speak in complete sentences Auscultation: clear to auscultation bilaterally Cardio Other: S1-S2 present regular rate and rhythm, no murmurs GI Inspection: Yes normal to inspection Palpation (GI): Soft to palpation, nontender, no guarding, no hernias and no masses Other: She goes to [facility] for her routine Pap pelvic exam, currently up-to-date per patient General: Yes no CVA tenderness Back/Spine/Pelvis Back: no CVA tenderness and No back tenderness Skin Other: No abnormal skin lesion or rash noted Neuro General: gait normal, moves all extremities, Normal light touch and pain sensation, no focal motor deficits, CN's II-XI intact bilaterally and deep tendon reflexes 2+ bilaterally Extrem General: Yes full ROM, Yes no clubbing, cyanosis or edema, Yes no calf tenderness and Yes normal gait Psych Appearance: grossly normal and well kempt Mental Status: mental status grossly normal Speech and movement: Normal speech and movement present Affect: normal affect Coding Level of Care Code Est Pt Prev Care 40-64y(53608) Diagnoses Annual visit for general adult medical examination with abnormal findings Additional Codes CHILO-7 Assessment Billing - CHILO-7 Assessment Tool: CHILO-7 Assessment 67965 ([id number]) PHQ-9 - 71332 - PHQ-9 Billing: Yes ([id number]) Assessment & Plan Assessment & Plan (1) Annual visit for general adult medical examination with abnormal findings: Code(s): Z00.01 - Encounter for general adult medical examination with abnormal findings Plan: She is up to date on her mammogram and Pap smear. Will order annual screening labs (CBC, chemistry panel) to be done fasting for 12 hours to monitor her status. She will schedule a follow-up eye exam. Her healthcare proxy is up to date. She had her first screening colonoscopy on 12/26, which showed mild sigmoid diverticulosis and non-bleeding internal hemorrhoids. Due to a family history of colon cancer (maternal grandmother) and polyps (sisters), a repeat colonoscopy is recommended in 5 years, by 12/26/2024. We will request the official report from [facility] for our record. The patient has a family history of skin cancer (mother) and receives yearly skin cancer screenings with dermatology at [facility]. Her last exam was benign, and she has a follow-up scheduled for August. Continue with yearly dermatological follow-ups. Plan Patient was informed and verbally consented to the use of an ambient scribe for clinic note documentation during this visit. Orders: Orders Lipid Panel 03/23/25 Z00.01 - Encounter for general adult medical examination with abnormal findings, Z13.1 - Encounter for screening for diabetes mellitus, Z13.220 - Encounter for screening for lipoid disorders Basic Metabolic Panel Fasting 03/23/25 Z00.01 - Encounter for general adult medical examination with abnormal findings, Z13.1 - Encounter for screening for diabetes mellitus, Z13.220 - Encounter for screening for lipoid disorders Vitamin D 25-OH Total 03/23/25 Z00.01 - Encounter for general adult medical examination with abnormal findings, Z13.1 - Encounter for screening for diabetes mellitus, Z13.220 - Encounter for screening for lipoid disorders Hemoglobin and Hematocrit 03/23/25 Z00.01 - Encounter for general adult medical examination with abnormal findings, Z13.1 - Encounter for screening for diabetes mellitus, Z13.220 - Encounter for screening for lipoid disorders
[2025-03-19 08:56] VITALS: BP 118/70; PULSE 73; RESP 16; TEMP 37.1; O2SAT 97; BMI 24.2
--- OUTSIDE RECORDS SUMMARY | 2025-03-19 09:29 | XMS_ITS | Encounter Summary ---
Author Organization [facility] Address [address] [place] [id number] Phone Care Team Providers Care Steamfitter Name Role Phone Mayuri Pineda MD Primary Care Provider Encounter Details Date Type Department Care Team (Late st Contact Info) Description 12/26/2024 Procedure Pass [facility] [address] [place] [id number] Social History Tobacco Use Types Packs/Day Years Used Date Smoking Tobacco: Never Smokeless Tobacco: Never Alcohol Use Standard Drinks/Week Comments Yes 0 (1 standard drink = 0.6 oz pur e alcohol) occasionally Education Answer Date Recorded Are you interested in more education? Not on debbie e 08/07/2022 Are you concerned about learning? Not on file 08/07/2022 No 08/07/2022 No 08/07/2022 Digital Access Answer Date Recorded No 09/07/2022 No 09/07/2022 Reliable internet access at home? Not on file 09/07/2022 Device with a working camera? Not on file Intimate Partner Violence Answer Date R ecorded Are you denied basic needs s uch as food, clothing, or medical care? No 12/26/2024 In the past 12 months have y ou been in a relationship with a person who hurts, threatens, or tries to control you? No 12/26/2024 Are you denied basic needs s uch as food, clothing, or medical care? No 12/26/2024 In the past 12 months have y ou been in a relationship with a person who hurts, threatens, or tries to control you? No 12/26/2024 Comments No Sex and Gender Information Value Date Recorded Sex Assigned at Female 01/17/2024 10:29 AM EDT Legal Sex Female 2:04 PM EST Gender Identity Female 01/17/2024 10:29 AM EDT Sexual Orientation Straight 01/17/2024 10 :29 AM EDT documented as of this encounter Plan of Treatment Upcoming Encounters Date Type Department Care Team (Late st Contact Info) Description 08/28/2025 3:30 PM EDT Office Visit [facility] [address] [address] Adriana Connors MD [address] [place] [id number] [email or web address] documented as of this encounter Visit Diagnoses Not on filedocumented in this encounter Care Teams Steamfitter Relationship Specialty Start Date End Date Mayuri Pineda MD [address] [facility] [place] [id number] PCP - General Internal Medicine 12/20/18 documented as of this encounter Additional Source Comments The information contained in this document represents components of the legal health record. It is not the complete legal health record.[facility]
--- OUTSIDE RECORDS SUMMARY | 2025-03-19 09:29 | XMS_ITS | Clinical Summary ---
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 Fiberoptic exam revealed healthy appearing and fully mobile true vocal folds. She had an ulcerative spot along the vocal process region. She does have some symptoms of reflux and also uses her voice loudly a lot. I prescribed her a course of omeprazole and recommended voice rest. She traveled a very long distance to be here today. She is welcome to follow-up here but we also discussed follow-up with an ENT provider closer to home. She obtained a picture of her pathology. She will let me know how she progresses. -Omeprazole 40 mg daily for 1 month -Voice rest as much as possible, avoid yelling -Follow-up should symptoms persist here or locally Encounters Date Type Department Care Team Description 12/26/2024 2:00 PM EDT - 12/26/2024 2:45 PM EDT Surgery [facility] [address] [place] [phone] Lorin Smith MD COLONOSCOPY 12/26/2024 12:51 PM EDT - 12/26/2024 4:00 PM EDT Hospital Encounter [facility] [address] [place] [address] Lorin Smith MD Discharge Disposition: Home or Self Care 12/26/2024 Procedure Pass [facility] [address] [place] [address] from Last 3 Months Family History Medical History Relation Comments Heart attack Maternal Grandfather Colon cancer Maternal Grandmother Melanoma Mother Colon polyps Sister 1 Colon polyps Sister 2 Colon polyps Sister 3 Relation Status Comments Maternal Grandfather Maternal Grandmother Mother Alive Sister 1 Alive Sister 2 Alive Sister 3 Alive Social History Tobacco Use Types Packs/Day Years [...] Orientation Straight 01/17/2024 10 :29 AM EDT Last Filed Vital Signs Vital Sign Reading Time Taken Comments Blood Pressure 130/67 12/26/2024 3:40 PM EDT Pulse 50 12/26/2024 3:45 PM EDT Temperature 36.6 C (97.8 F) 12/26/2024 2:32 PM EDT Respiratory Rate 32 12/26/2024 3:45 PM EDT Oxygen Saturation 100% 12/26/2024 3:45 PM EDT Inhaled Oxygen Concentration - - Weight 72.1 kg (159 lb) 12/26/2024 2:32 PM EDT Height 175.3 cm (5' 9 ) 12/26/2024 2:32 PM EDT Body Mass Index 23.48 12/26/2024 2:32 PM EDT Plan of Treatment Upcoming Encounters Date Type Department Care Team (Late st Contact Info) Description 08/28/2025 3:30 PM EDT Office Visit [facility] [address] [place] [address] Adriana Connors MD [address] [place] [address] [email or web address] Health Maintenance Due Date Last Done Comments LIPID PANEL 1978 DEPRESSION SCREENING 1990 HEPATITIS C SCREENING 1996 HIV ONE-TIME SCREENING (18-65 YEARS) 1996 PAP SMEAR 07/04/1999 Adult Td,Tdap Booster 06/29/2016 06/29/2006 COLOGUARD 07/04/2023 FIT TEST 07/04/2023 FOBT 07/04/2023 SIGMOIDOSCOPY 07/04/2023 VIRTUAL COLONOSCOPY 07/04/2023 MAMMOGRAM 07/15/2023 07/14/2021, 06/11, 06/07/2020, Additional history exists INFLUENZA VACCINE (#1) 2024 01/03/2013 COVID-19 VACCINE ( season) 2024 COLONOSCOPY 12/26/2034 12/26/2024 COLORECTAL CANCER SCREENING 12/26/2034 SMOKING STATUS SCREENING (Once After 26 Yrs) Completed 12/26/2024 HEPATITIS A VACCINES Aged Out No long er eligible based on patient's age to complete this topic HIB VACCINES Aged Out No longer eligi ble based on patient's age to complete this topic MENINGOCOCCAL VACCINES (ACWY) Aged Out No longer eligible based on patient's age to complete this topic MENINGOCOCCAL VACCINES (B) Aged Out N o longer eligible based on patient's age to complete this topic PNEUMOCOCCAL VACCINES (0-49 years) Aged Out No longer eligible based on patient's age to complete this topic Medical Devices Not on file Procedures Procedure Name Priority Date/Time Associated Diagnosis Comments COLONOSCOPY 12/26/2024 2:51 PM EDT Asymptomatic Average risk screening Special Needs 12/25/24 1:[address]12/12/24 pt requested prep be emailed benjamin 12/08/24 called both pt and alternate contact, calls did not go through - unable to reach pt jco11/15/24 Prep explained and posted, [email or web address] message left to schedule apt.[email or web address] outside order on file. MS ENDOSCOPY, COLON 12/26/2024 2:43 PM EDT BI MAMMOGRAM OUTSIDE (NO INTERPRETATION) Routine 07/14/2021 12:00 AM EDT from Last 3 Months or Most Recently Relevant to Health Maintenance Results * ENDOSCOPY, COLON (12/26/2024 2:43 PM EDT) 12/26/2024 2:43 PM EDT Narrative Transcriptions Lorin Smith MD - 12/26/2024 2:43 PM EDT [facility] Patient Name: Danae Babb Procedure Date: 12/26/2024 2:43 PM Date of : 1980 Age: 44 Room: 06 Gender: Female Note Status: Finalized Attending MD: LORIN SMITH M.D., Instrument Name: [id number] Procedure: Colonoscopy Indications: Colon cancer screening in patient at increased risk: Family history of 1st-degree relative with colon polyps before age 60 years, Colon cancer screening in patient at increased risk: Family history of colon polyps in multiple 1st-degree relatives Providers: LORIN SMITH M.D., Ni Still RN Referring MD: Mayuri Pineda MD (Referring MD) Medicines: Fentanyl 100 micrograms IV, Midazolam 5 mg IV, Diphenhydramine 25 mg IV Complications: No immediate complications. Procedure: Pre-Anesthesia Assessment: - Prior to the procedure, a History and Physical was performed, and patient medications, allergies and sensitivities were reviewed. The patient's tolerance of previous anesthesia was reviewed. - The risks and benefits of the procedure and the sedation options and risks were discussed with the patient. All questions were answered and informed consent was obtained. - Patient identification and proposed procedure were verified prior to the procedure by the physician and the nurse. The procedure was verified in the procedure room. - ASA Grade Assessment: II - A patient with mild systemic disease. - After reviewing the risks and benefits, the patient was deemed in satisfactory condition to undergo the procedure. - The anesthesia plan was to use moderate sedation/analgesia (conscious sedation). - Immediately prior to administration of medications, the patient was re-assessed for adequacy to receive sedatives. - Sedation was administered by the nurse. The sedation level attained was moderate. - The heart rate, respiratory rate, oxygen saturations, blood pressure, adequacy of pulmonary ventilation, and response to care were monitored throughout the procedure. - The physical status of the patient was re-assessed after the procedure. After informed consent was obtained, the scope was passed under direct vision. Throughout the procedure, the patient's blood pressure, pulse, and oxygen saturations were monitored continuously. The Colonoscope was introduced through the anus and advanced to the terminal ileum. The colonoscopy was performed without difficulty. The patient tolerated the procedure well. The quality of the bowel preparation was good. The terminal ileum, ileocecal valve, appendiceal orifice, and rectum were photographed. Findings: Non-bleeding internal hemorrhoids were found during retroflexion. The hemorrhoids were Grade I (internal hemorrhoids that do not prolapse). Mild sigmoid diverticulosis No polyps or masses were found. The terminal ileum appeared normal. Impression: - Non-bleeding internal hemorrhoids. - The examined portion of the ileum was normal. - Mild diverticulosis - No specimens collected. Recommendation: - Await pathology results. - Repeat colonoscopy in 5 years.. Lorin Smith MD [id number] LORIN SMITH M.D. 12/26/2024 3:28:53 PM Number of Addenda: 0 Note Initiated On: 12/26/2024 2:43 PM us Mayuri Pineda MD GI PROCEDURE ORDERABLE S Final Result * Mammogram Outside (No Interpretation) (07/14/2021 12:00 AM EDT) Narrative GIANFRANCO - 08/29/2021 3:38 PM EDT This study is for PACS storage only and not for interpretation. us Unknown Unknown IMG OUTSIDE IMAGING W/OUT INT ERPRETATION Final Result [facility] from Last 3 Months or Most Recently Relevant to Health Maintenance Insurance [facility] PPO [facility] PPO [place] OUT OF STATE PPO [place] OUT OF STATE PPO [place]UE [place] OUT OF STATE PPO BLUE [place] OUT OF STATE PPO Care Teams Criminalist Relationship Specialty Start Date End Date Mayuri Pineda MD [address] [place] [address] PCP - General Internal Medicine 12/20/18 Additional Source Comments The information contained in this document represents components of the legal health record. It is not the complete legal health record.[facility]
--- OUTSIDE RECORDS SUMMARY | 2025-03-19 09:29 | XMS_ITS | Encounter Summary ---
Author Organization [facility] Address [address] [facility] [address] [place] [address] Phone Care Team Providers Care Bee Breeder Name Role Phone Mayuri Pineda MD Primary Care Provider Encounter Details Date Type Department Care Team (Late st Contact Info) Description 09/02/2021 Ancillary Orders [facility] [address] [place] [address] Poli Gupta MD [address] [place] [address] Drive [address] [place] [phone] Abnormal finding on breast imaging Social History Tobacco Use Types Packs/Day Years Used Date Smoking Tobacco: Never Smokeless Tobacco: Never Comments Unknown Sex and Gender Information Value Date Recorded Sex Assigned at Female 01/17/2024 10:29 AM EDT Legal Sex Female 2:04 PM EST Gender Identity Female 01/17/2024 10:29 AM EDT Sexual Orientation Straight 01/17/2024 10 :29 AM EDT documented as of this encounter Plan of Treatment Upcoming Encounters Date Type Department Care Team (Late st Contact Info) Description 08/28/2025 3:30 PM EDT Office Visit [facility] [address] [place] [address] Adriana Connors MD [address] [place] [address] [email or web address] documented as of this encounter Results * RC Breast Imaging Consultation ([facility]) (09/02/2021 3:31 PM EDT) Anatomical Region Laterality Modality Breast Left, Breast Right, Breast Bilateral Radiographic Imaging 09/09/2021 11:0 6 AM EDT Impressions 09/09/2021 11:23 AM EDT Left Breast: No findings suspicious for malignancy on the imaging submitted for review. Right Breast: Benign cyst. No findings suspicious for malignancy on the imaging submitted for review. Additional imaging recommended: None. Routine screening mammography. Additional biopsy recommended: None. Communication of results: Results and recommendations will be communicated to the patient by the Breast Center. OVERALL ASSESSMENT: BI-RADS 2 BENIGN Narrative 09/09/2021 11:23 AM EDT Reason for exam (per EHR order): 2nd Opinion; abnormal breast imaging Additional clinical information obtained from the EHR: 41-year-old woman presents for second opinion consultation regarding mammography screen-detected right breast findings. SECOND OPINION CONSULT: Consult interpretation is performed by Dr. Meredith Hough on 09/09/2021. The imaging reviewed below has been performed at an outside institution. [facility] are not responsible for image quality, completeness of this examination, or accuracy of patient identity. At the request of the patient's referring physician we have been asked to interpret examination(s) pertinent to facilitating breast care at [facility]. IMAGING REVIEWED: Mammogram(s): Mammographic images from [facility] dated 07/04/2021, 07/14/2021. Comparison(s): Comparison is made with relevant prior imaging available in PACS. Ultrasound(s): Ultrasound images from [facility] dated 07/14/2021. Comparison(s): No prior relevant ultrasound is available for comparison at the time of dictation. IMAGING FINDINGS: MAMMOGRAM: Technique: Digital mammography and tomosynthesis were performed; the tomosynthesis images are available and were reviewed. Breast Composition: heterogeneously dense which may obscure small masses. LEFT BREAST: No significant masses, suspicious calcifications, or other abnormalities are seen. RIGHT BREAST: A central to slightly outer breast middle to posterior depth equal density asymmetry present on CC view only (CC slice 42/58, spot compression CC slice 43/59). This localizes to the upper breast and measures up to 0.5 cm. ULTRASOUND: Ultrasound is an monitor car operator-dependent real-time examination. Only static images are available for review. RIGHT BREAST: Static images labeled right breast 11:00, 3 cm from nipple demonstrate a 0.4 cm anechoic oval mass with circumscribed margins consistent with a simple cyst, benign. A single static digital image demonstrates additional benign cysts and/or dilated ducts. Procedure Note Meredith Hough MD - 09/09/2021 Reason for exam (per EHR order): 2nd Opinion; abnormal breast imaging Additional clinical information obtained from the EHR: 41-year-old woman presents for second opinion consultation regardingmammography screen-detected right breast findings. SECOND OPINION CONSULT: Consult interpretation is performed by Dr. Meredith Hough on 09/09/2021. Theimaging reviewed below has been performed at an outside institution.[facility] are not responsible for image quality, completeness of thisexamination, or accuracy of patient identity. At the request of thepatient's referring physician we have been asked to interpretexamination(s) pertinent to facilitating breast care at [facility]. IMAGING REVIEWED: Mammogram(s): Mammographic images from [facility] date07/04/2021, 07/14/2021. Comparison(s): Comparison is made [facility] Ultrasound(s): Ultrasound images from [facility] date07/14/2021. Comparison(s): No prior relevant ultrasound is available for comparison atthe time of dictation. IMAGING FINDINGS: MAMMOGRAM: Technique: Digital mammography and tomosynthesis were performed; thetomosynthesis images are available and were reviewed. Breast Composition: heterogeneously dense which may obscure small masses. LEFT BREAST: No significant masses, suspicious calcifications, or otherabnormalities are seen. RIGHT BREAST: A central to slightly outer breast middle to posterior depthequal density asymmetry present on CC view only (CC slice 42/58, spotcompression CC slice 43/59). This localizes to the upper breast andmeasures up to 0.5 cm. ULTRASOUND: Ultrasound is an monitor car operator-dependent real-time examination.Only static images are available for review. RIGHT BREAST: Static images labeled right breast 11:00, 3 cm from nippledemonstrate a 0.4 cm anechoic oval mass with circumscribed marginsconsistent with a simple cyst, benign. A single static digital imagedemonstrates additional benign cysts and/or dilated ducts. IMPRESSION: Left Breast: No findings suspicious for malignancy on the imaging submitted for review. Right Breast: Benign cyst. No findings suspicious for malignancy on the imagingsubmitted for review. Additional imaging recommended: None. Routine screening mammography. Additional biopsy recommended: None. Communication of results: Results and recommendations will be communicatedto the patient by the Breast Center. OVERALL ASSESSMENT: BI-RADS 2 BENIGN us Poli Gupta MD IMG RC CONSULT Final Resu lt documented in this encounter Visit Diagnoses Diagnosis Abnormal finding on breast imaging Abnormal finding on breast imaging documented in this encounter Care Teams Bee Breeder Relationship Specialty Start Date End Date Mayuri Pineda MD [facility] [place] [address] PCP - General Internal Medicine 12/20/18 documented as of this encounter Additional Source Comments The information contained in this document represents components of the legal health record. It is not the complete legal health record.[facility]
--- OUTSIDE RECORDS SUMMARY | 2025-03-19 09:29 | XMS_ITS | Encounter Summary ---
Author Organization [facility] Address [address] [facility] [address] [place] [address] Phone Care Team Providers Care Adult Basic Education Teacher Name Role Phone Jairo Garcia MD Primary Care Provider [phone] Mayuri Pineda MD Primary Care Provider Reason for Referral * Consultation (Within 1 month) - Closed Specialty Diagnoses / Procedures Referred By Lucy arora Referred To Contact Gastroenterology Diagnoses Generalized abdominal pain Abdominal bloating System, Provider Not In, PhD [address] [address] Nirmal Meredith MD Phone: tel: fax: mailto:[email or web address] Referral ID Status Reason Start Date Expiration Date Visits Re quested Visits Authorized [id number] Closed 12/31/2017 12/31/2018 1 1 Encounter Details Date Type Department Care Team (Latest Contact Info) Description 12/31/[address] [facility] [address] [place] [address], [address] [place] [address] Jairo Garcai MD [address] [place] [address] Generalized abdominal pain (Primary Dx); Abdominal bloating Social History Tobacco Use Types Packs/Day Years [...] Description 08/28/2025 3:30 PM EDT Office Visit [facility] [address] [address] Adriana Connors MD [address] [place] [address] [email or web address] Scheduled Referrals Name Type Priority Associated Diagnoses Order Schedule Ambulatory referral to [facility] Gastroenterology (Consult Requests Only) Outpatient Referral Routine Generalized abdominal pain Abdominal bloating Ordered: 12/31/2017 documented as of this encounter Visit Diagnoses Diagnosis Generalized abdominal pain- Primary Abdominal pain, generalized Abdominal bloating Flatulence, eructation, and gas pain documented in this encounter Care Teams Adult Basic Education Teacher Relationship Specialty Start Date End Date Jairo Garcia MD [address] [place] [address] PCP - General 08/16/14 12/19/18 Mayuri Pineda MD [facility] [place] [id number] PCP - General Internal Medicine 12/20/18 documented as of this encounter Additional Source Comments The information contained in this document represents components of the legal health record. It is not the complete legal health record.[facility]
== END 2025-03-19 09:34 | disposition home or self-care (01) ==
LOC: HO.HMCC 08:22
PROVIDERS: PCP Internal Medicine; Visit Provider Internal Medicine
DX: Z00.01 Encounter for general adult medical examination with abnormal findings (principal)

== ENCOUNTER → 2025-03-19 08:21 | Outpatient (BNVA) | payer BC, SELFPAY | PROVIDERS: PCP Internal Medicine; Visit Provider Internal Medicine | DX: Z00.01 Encounter for general adult medical examination with abnormal findings (principal) | CPT/HCPCS: 96127 ==

== ENCOUNTER 2025-03-23 07:54 | Outpatient (REF) | payer BC, SELFPAY ==
--- OUTSIDE RECORDS SUMMARY | 2025-03-23 08:13 | XMS_ITS | Encounter Summary ---
Author Organization [facility] Address [address] [place] [address] Phone Care Team Providers Care Machinist Mechanic Name Role Phone Mayuri Pineda MD Primary Care Provider Encounter Details Date Type Department Care Team (Late st Contact Info) Description 12/26/2024 Procedure Pass [facility] [address] [place] [phone] Social History Tobacco Use Types Packs/Day Years [...] Description 08/28/2025 3:30 PM EDT Office Visit [facility] [address] [address] Adriana Connors MD [address] [place] [address] [email or web address] documented as of this encounter Visit Diagnoses Not on filedocumented in this encounter Care Teams Machinist Mechanic Relationship Specialty Start Date End Date Mayuri Pineda MD [address] [place] [address] PCP - General Internal Medicine 12/20/18 documented as of this encounter Additional Source Comments The information contained in this document represents components of the legal health record. It is not the complete legal health record.[facility]
--- OUTSIDE RECORDS SUMMARY | 2025-03-23 08:13 | XMS_ITS | Encounter Summary ---
Author Organization [facility] Address [address] [facility] [address] [place] [phone] Phone Care Team Providers Care Attending Radiologist Name Role Phone Mayuri Pineda MD Primary Care Provider Encounter Details Date Type Department Care Team (Late st Contact Info) Description 09/02/2021 Ancillary Orders [facility] [address] [place] [phone] Poli Gupta MD [address] [place] [address] Drive [address] [place] [phone] Abnormal finding on breast imaging Social History [...] Description 08/28/2025 3:30 PM EDT Office Visit [facility] [address] [place] [address] Adriana Connors MD [address] [place] [phone] [email or web address] documented as of this encounter Results * RC Breast Imaging Consultation ([facility]) (09/02/2021 3:31 PM EDT) Anatomical Region Laterality [...] has been performed at an outside institution. [facility] are not responsible for image quality, completeness of this examination, or accuracy of patient identity. At the request of the patient's referring physician we have been asked to interpret examination(s) pertinent to facilitating breast care at [facility]. IMAGING REVIEWED: Mammogram(s): Mammographic images from [facility] dated 07/04/2021, 07/14/2021. Comparison(s): Comparison is made with relevant prior imaging available in PACS. Ultrasound(s): Ultrasound images from [facility] dated 07/14/2021. Comparison(s): No prior relevant [...] to 0.5 cm. ULTRASOUND: Ultrasound is an dicer machine operator-dependent real-time examination. Only static images are [...] below has been performed at an outside institution.[facility] are not responsible for image quality, completeness of thisexamination, or accuracy of patient identity. At the request of thepatient's referring physician we have been asked to interpretexamination(s) pertinent to facilitating breast care at [facility]. IMAGING REVIEWED: Mammogram(s): Mammographic images from [facility] date07/04/2021, 07/14/2021. Comparison(s): Comparison is made with [facility] Ultrasound(s): Ultrasound images from [facility] date07/14/2021. Comparison(s): No prior relevant ultrasound [...] to 0.5 cm. ULTRASOUND: Ultrasound is an dicer machine operator-dependent real-time examination.Only static images are available [...] imaging documented in this encounter Care Teams Attending Radiologist Relationship Specialty Start Date End Date Mayuri Pineda MD [facility] [place] [address] PCP - General Internal Medicine 12/20/18 documented as of this encounter Additional Source Comments The information contained in this document represents components of the legal health record. It is not the complete legal health record.[facility]
--- OUTSIDE RECORDS SUMMARY | 2025-03-23 08:13 | XMS_ITS | Clinical Summary ---
Author Organization [facility] Address [address] [place] [phone] Phone Care Team Providers Care Toe Stapler Name Role Phone Mayuri Pineda MD Primary [...] EDT - 12/26/2024 2:45 PM EDT Surgery [facility] [address] [place] [address] Lorin Smith MD COLONOSCOPY 12/26/2024 12:51 PM EDT - 12/26/2024 4:00 PM EDT Hospital Encounter [facility] [place] [address] [place] [address] Lorin Smith MD Discharge Disposition: Home or Self Care 12/26/2024 Procedure Pass [facility] [address] [place] [address] from Last 3 Months Family History Medical [...] Description 08/28/2025 3:30 PM EDT Office Visit [facility] [address] [place] [address] Adriana Connors MD [address] [place] [address] [email or web address] Due Date Last Done Comments [...] Attending MD: LORIN SMITH M.D., Instrument Name: [id number] Procedure: Colonoscopy Indications: Colon cancer screening in [...] colonoscopy in 5 years.. Lorin Smith MD [id number] LORIN SMITH M.D. 12/26/2024 3:28:53 PM Number [...] Most Recently Relevant to Health Maintenance Insurance [facility] OUT OF [facility] PPO [facility] OUT [facility] [employer] [place] OUT OF STATE PPO [employer] [place] OUT OF STATE PPO [place] [place] OUT OF STATE PPO BLUE [place] OUT OF STATE PPO Care Teams Toe Stapler Relationship Specialty Start Date End Date Mayuri Pineda MD [address] [place] [address] PCP - General Internal Medicine 12/20/18 Additional Source Comments The information contained in this document represents components of the legal health record. It is not the complete legal health record.[facility]
--- OUTSIDE RECORDS SUMMARY | 2025-03-23 08:13 | XMS_ITS | Encounter Summary ---
Author Organization [facility] Address [address] [facility] [address] [place] [address] Phone Care Team Providers Care Farm Planner Name Role Phone Jairo Garcia MD Primary Care Provider [phone] Mayuri Pineda MD Primary Care Provider Reason for Referral * Consultation (Within 1 month) - Closed Specialty Diagnoses / Procedures Referred By Lucy arora Referred To Contact Gastroenterology Diagnoses Generalized abdominal pain Abdominal bloating System, Provider Not In, PhD [address] [address] Nirmal Meredith MD Phone: tel: fax: mailto:[email or web address] Referral ID Status Reason Start Date Expiration Date Visits Re quested Visits Authorized [id number] Closed 12/31/2017 12/31/2018 1 1 Encounter Details Date Type Department Care Team (Latest Contact Info) Description 12/31/2017 Transcribe Orders [facility] [address] [place] [address], [address] [place] [address] Jairo Garcia MD [address] [place] [phone] Generalized abdominal pain (Primary Dx); Abdominal bloating [...] Description 08/28/2025 3:30 PM EDT Office Visit [facility] [address] [address] Adriana Connors MD [address] [place] [address] [email or web address] Scheduled Referrals Name Type Priority Associated Diagnoses Order Schedule Ambulatory referral to [facility] (Consult Requests Only) Outpatient Referral Routine Generalized abdominal pain Abdominal bloating Ordered: 12/31/2017 documented as of this encounter Visit Diagnoses Diagnosis Generalized abdominal pain- Primary Abdominal pain, generalized Abdominal bloating Flatulence, eructation, and gas pain documented in this encounter Care Teams Farm Planner Relationship Specialty Start Date End Date Jairo Garcia MD [address] [place] [address] PCP - General 08/16/14 12/19/18 Mayuri Pineda MD [facility] [place] [address] PCP - General Internal Medicine 12/20/18 documented as of this encounter Additional Source Comments The information contained in this document represents components of the legal health record. It is not the complete legal health record.[facility]
[2025-03-23 08:51] LABS: Hematocrit 40.7 % (37.0-47.0); Hemoglobin 13.7 g/dl (12.0-16.0)
[2025-03-23 09:42] LABS: Anion Gap 11 (12-20); Blood Urea Nitrogen 16 mg/dL (9-16); Calcium 8.8 mg/dL (8.4-10.2); Carbon Dioxide 25 mmol/L (22-29); Chloride 106 mmol/L (96-108); Cholesterol 207 mg/dL (<200); Estimated Glomerular Filt Rate > 60; HDL Cholesterol 73 mg/dL (>40); Potassium 3.9 mmol/L (3.3-5.1); Sodium 138 mmol/L (135-145); Triglycerides 51 mg/dL (<150)
== END 2025-03-23 07:55 | disposition home or self-care (01) ==
LOC: HO.HMGCLDS 07:54
PROVIDERS: PCP Internal Medicine; Visit Provider Internal Medicine
DX: Z00.00 Encounter for general adult medical examination without abnormal findings (principal); Z13.220 Encounter for screening for lipoid disorders; Z13.1 Encounter for screening for diabetes mellitus; Z13.0 Encounter for screening for diseases of the blood and blood-forming organs and certain disorders involving the immune mechanism; Z13.6 Encounter for screening for cardiovascular disorders; Z13.21 Encounter for screening for nutritional disorder
CPT/HCPCS: 36415; 80048; 80061; 82306; 85014; 85018